=== PATIENT | male | born 1960 | race Two or more races ===

== ENCOUNTER 2021-01-01 09:58 | Inpatient (IN) | payer MEDICAID, OTHER ==
[~2021-01-01] VITALS: Ht 167.6 cm; Wt 67.6 kg
[2021-01-01 11:43] LABS: BASOPHILS % 0.6 % (0.0-2.0); EOSINOPHILS % 0.8 % (0.0-5.0); HEMATOCRIT. 40.5 % (42.0-52.0); HEMOGLOBIN. 13.7 g/dL (14.0-18.0); LYMPHOCYTES % 9.7 % (20.0-50.0); MEAN CORPUSCULAR HEMOGLOBIN 32.8 pg (28.0-32.0); MEAN PLATELET VOLUME 8.4 fl (7.4-10.4); MONOCYTES % 6.8 % (2.0-8.0); NEUTROPHILS % 82.1 % (40.0-76.0); PLATELET 331 x1000/uL (130-400); RED BLOOD CELL COUNT 4.18 mill/uL (4.7-6.1); RED CELL DISTRIBUTION WIDTH 14.2 % (11.6-14.6)
[2021-01-01 11:57] LABS: CHLORIDE 106 mEq/L (98-107)
[2021-01-01 12:01] LABS: ETHANOL BLOOD < 10 mg/dL
[2021-01-01] MEDS ORDERED: LEVETIRACETAM 1000MG PREMIX 100 ML IV ONE (12:30)
[2021-01-01 22:00] VITALS: BP 109/67
[2021-01-01] MEDS ORDERED: LORAZEPAM 2MG/ML CPJ IV PRN (22:45)
[2021-01-01 23:00] VITALS: BP 109/67
[2021-01-02] VITALS: BP 128/65
[2021-01-02 04:00] VITALS: BP 104/64
[2021-01-02 08:10] VITALS: BP 115/77
[2021-01-02] MEDS: ASPIRIN 81MG TABLET PO SCH (08:39)
[2021-01-02] MEDS: FAMOTIDINE 20MG TABLET PO SCH ×2 (08:39→22:35)
[2021-01-02] MEDS: LEVETIRACETAM 500MG/5ML CUP PO SCH ×2 (08:39→22:35)
[2021-01-02 12:00] VITALS: BP 97/53
[2021-01-02 16:48] VITALS: BP 105/65
[2021-01-02] MEDS ORDERED: KEPP500 MT (17:16)
[2021-01-02 18:30] LABS: CHLORIDE 107 mEq/L (98-107)
[2021-01-02 20:00] VITALS: BP 99/59
[2021-01-02 21:45] LABS: BASOPHILS % 0.8 % (0.0-2.0); EOSINOPHILS % 2.6 % (0.0-5.0); HEMATOCRIT. 40.3 % (42.0-52.0); HEMOGLOBIN. 13.6 g/dL (14.0-18.0); LYMPHOCYTES % 30.8 % (20.0-50.0); MEAN CORPUSCULAR HEMOGLOBIN 32.9 pg (28.0-32.0); MEAN CORPUSCULAR VOLUME 97.4 fL (80.0-94.0); MONOCYTES % 11.5 % (2.0-8.0); NEUTROPHILS % 54.3 % (40.0-76.0); PLATELET 317 x1000/uL (130-400); RED BLOOD CELL COUNT 4.14 mill/uL (4.7-6.1); RED CELL DISTRIBUTION WIDTH 13.8 % (11.6-14.6)
[2021-01-02] MEDS: ENOXAPARIN 40MG/0.4ML SYR SUBCUT SCH (22:36)
[2021-01-03] VITALS: BP 127/86
[2021-01-03 02:00] LABS: *AMPHETAMINES SCREEN URINE NEGATIVE (NEGATIVE); *BENZODIAZEPINES SCREEN URINE NEGATIVE (NEGATIVE); *COCAINE SCREEN URINE NEGATIVE (NEGATIVE); CANNABINOID URINE SCREEN NEGATIVE (NEGATIVE); METHADONE URINE SCREEN NEGATIVE (NEGATIVE); OPIATES URINE SCREEN NEGATIVE (NEGATIVE); PHENCYCLIDINE URINE SCREEN NEGATIVE (NEGATIVE)
[2021-01-03 02:01] LABS: *BARBITURATES SCREEN URINE NEGATIVE (NEGATIVE)
[2021-01-03 04:00] VITALS: BP 131/80
[2021-01-03 08:08] VITALS: BP 121/80
[2021-01-03] MEDS: ASPIRIN 81MG TABLET PO SCH (08:40)
[2021-01-03] MEDS: LEVETIRACETAM 500MG/5ML CUP PO SCH ×2 (08:40→21:45)
[2021-01-03] MEDS: FAMOTIDINE 20MG TABLET PO SCH ×2 (08:40→21:45)
[2021-01-03 11:51] VITALS: BP 137/84
[2021-01-03 16:11] VITALS: BP 121/72
[2021-01-03 20:00] VITALS: BP 127/63
[2021-01-03] MEDS: ENOXAPARIN 40MG/0.4ML SYR SUBCUT SCH (21:45)
[2021-01-04] VITALS: BP 109/65
[2021-01-04 04:00] VITALS: BP 118/68
[2021-01-04 08:00] VITALS: BP 124/70
[2021-01-04] MEDS: LEVETIRACETAM 500MG/5ML CUP PO SCH ×2 (09:17→20:23)
[2021-01-04] MEDS: FAMOTIDINE 20MG TABLET PO SCH ×2 (09:17→20:23)
[2021-01-04] MEDS: ASPIRIN 81MG TABLET PO SCH (09:17)
[2021-01-04 12:00] VITALS: BP 100/60
[2021-01-04 16:00] VITALS: BP 109/74
[2021-01-04 20:00] VITALS: BP 110/66
[2021-01-04] MEDS: ENOXAPARIN 40MG/0.4ML SYR SUBCUT SCH (22:09)
[2021-01-05] VITALS: BP 105/75
[2021-01-05 04:00] VITALS: BP 128/59
[2021-01-05 08:00] VITALS: BP 110/62
[2021-01-05] MEDS: ASPIRIN 81MG TABLET PO SCH (09:18)
[2021-01-05] MEDS: FAMOTIDINE 20MG TABLET PO SCH ×2 (09:18→21:32)
[2021-01-05] MEDS: LEVETIRACETAM 500MG/5ML CUP PO SCH ×2 (09:18→21:32)
[2021-01-05 12:00] VITALS: BP 105/61
[2021-01-05 16:00] VITALS: BP 120/58
[2021-01-05 20:00] VITALS: BP 122/75
[2021-01-05] MEDS: ENOXAPARIN 40MG/0.4ML SYR SUBCUT SCH (23:11)
[2021-01-06] VITALS: BP 114/75
[2021-01-06 04:00] VITALS: BP 116/80
[2021-01-06 08:00] VITALS: BP 125/84
[2021-01-06] MEDS: FAMOTIDINE 20MG TABLET PO SCH ×2 (08:50→21:38)
[2021-01-06] MEDS: LEVETIRACETAM 500MG/5ML CUP PO SCH ×2 (08:50→21:38)
[2021-01-06] MEDS: ASPIRIN 81MG TABLET PO SCH (08:50)
[2021-01-06 12:00] VITALS: BP 109/77
[2021-01-06 16:00] VITALS: BP 105/58
[2021-01-06 20:00] VITALS: BP 117/72
[2021-01-06] MEDS: ENOXAPARIN 40MG/0.4ML SYR SUBCUT SCH (22:35)
[2021-01-07] VITALS: BP 116/72
[2021-01-07 04:00] VITALS: BP 158/87
[2021-01-07 08:00] VITALS: BP 145/80
[2021-01-07] MEDS: LEVETIRACETAM 500MG/5ML CUP PO SCH ×2 (08:40→21:13)
[2021-01-07] MEDS: FAMOTIDINE 20MG TABLET PO SCH ×2 (08:40→21:13)
[2021-01-07] MEDS: ASPIRIN 81MG TABLET PO SCH (08:41)
[2021-01-07 12:00] VITALS: BP 121/67
[2021-01-07 16:00] VITALS: BP 130/72
[2021-01-07 20:00] VITALS: BP 92/58
[2021-01-07] MEDS: ENOXAPARIN 40MG/0.4ML SYR SUBCUT SCH (23:25)
[2021-01-08] VITALS: BP 131/86
[2021-01-08 04:00] VITALS: BP 119/86
[2021-01-08 08:06] VITALS: BP 119/82
[2021-01-08] MEDS: ASPIRIN 81MG TABLET PO SCH (09:06)
[2021-01-08] MEDS: FAMOTIDINE 20MG TABLET PO SCH ×2 (09:06→22:15)
[2021-01-08] MEDS: LEVETIRACETAM 500MG/5ML CUP PO SCH ×2 (09:07→22:14)
[2021-01-08 11:41] VITALS: BP 112/68
[2021-01-08 16:08] VITALS: BP 105/61
[2021-01-08 20:20] VITALS: BP 111/57
[2021-01-08] MEDS: ENOXAPARIN 40MG/0.4ML SYR SUBCUT SCH (22:14)
[2021-01-09 00:12] VITALS: BP 116/78
[2021-01-09 04:00] VITALS: BP 148/85
[2021-01-09] MEDS: LEVETIRACETAM 500MG/5ML CUP PO SCH (07:59)
[2021-01-09] MEDS: ASPIRIN 81MG TABLET PO SCH (07:59)
[2021-01-09] MEDS: FAMOTIDINE 20MG TABLET PO SCH (07:59)
[2021-01-09 08:00] VITALS: BP 153/85
[2021-01-09 12:00] VITALS: BP 121/81
[2021-01-09 13:16] VITALS: BP 121/81
[2021-01-09 16:00] VITALS: BP 127/81
== END 2021-01-09 16:56 | disposition home or self-care (01) | DRG 53 ==
LOC: ER 09:58 → 6WST 14:22 → ENRESERV 20:34
PROVIDERS: ADMIT Internal Medicine; ATTEND Internal Medicine
PROC: 4A00X4Z Measurement of Central Nervous Electrical Activity, External Approach (ICD-10-PCS; principal; 2021-01-03)
DX: G40.909 Epilepsy, unspecified, not intractable, without status epilepticus (principal); D72.829 Elevated white blood cell count, unspecified; Z86.73 Personal history of transient ischemic attack (TIA), and cerebral infarction without residual deficits
CPT/HCPCS: 36415; 70551; 71045; 80048; 80053; 80305; 80320; 82140; 83605; 84443; 84484; 85025; 93005; 99285; J1650; J1953; G0480